=== PATIENT | male | born 1965 | race African-American/Black ===

== ENCOUNTER 2020-08-16 20:48 | Emergency (ER) | payer OTHER ==
[2020-08-16 20:58] VITALS: TEMP 97.9
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
--- NOTE | 2020-08-16 22:05 | XR ---
EXAMINATION TYPE: XR chest 2V DATE OF EXAM: 08/16/2020 COMPARISON: None INDICATION: Chest pain short of breath TECHNIQUE: Frontal and lateral views of the chest are obtained. FINDINGS: The heart size is normal. The pulmonary vasculature is normal. The lungs are clear. IMPRESSION: 1. No acute pulmonary process.
[2020-08-16 22:47] LABS: Basophils % (A) 1 %; Eosinophils # (A) 0.3 k/uL (0-0.7); Eosinophils % (A) 5 %; HCT 43.6 % (39.0-53.0); HGB 14.8 gm/dL (13.0-17.5); Lymphocytes # (A) 1.7 k/uL (1.0-4.8); Lymphocytes % (A) 28 %; MCH 29.2 pg (25.0-35.0); MCHC 33.9 g/dL (31.0-37.0); MCV 86.1 fL (80.0-100.0); Mean Platelet Volume 7.3; Monocytes # (A) 0.4 k/uL (0-1.0); Monocytes % (A) 7 %; Neutrophils # (A) 3.7 k/uL (1.3-7.7); Neutrophils % (A) 59 %; Platelet Count 198 k/uL (150-450); RBC 5.07 m/uL (4.30-5.90); RDW 12.8 % (11.5-15.5); WBC 6.2 k/uL (3.8-10.6)
[2020-08-16 23:06] LABS: D-Dimer 0.28 mg/L FEU (<0.60); INR 0.9 (<1.2); Partial Thromboplastin Time 23.8 sec (22.0-30.0); Prothrombin Time 9.4 sec (9.0-12.0)
[2020-08-16 23:22] LABS: Albumin 4.2 g/dL (3.5-5.0); Calcium 9.7 mg/dL (8.4-10.2); Potassium 4.2 mmol/L (3.5-5.1); Total Bilirubin 0.3 mg/dL (0.2-1.3); Total Protein 6.8 g/dL (6.3-8.2)
[2020-08-17 00:23] VITALS: BP 134/89; PULSE 85; RESP 16
== END 2020-08-17 00:20 | disposition home or self-care (01) ==
LOC: EC 20:48
DX: R07.89 Other chest pain (principal); Z90.09 Acquired absence of other part of head and neck
CPT/HCPCS: 36415; 71046; 80053; 83735; 84484; 85025; 85379; 85610; 85730; 93005; 99285